=== PATIENT | male | born 1950 | race Two or more races ===

== ENCOUNTER 2016-12-07 11:54 | Emergency (ER) | payer OTHER ==
[2016-12-07 14:28] LABS: BASOPHILS 0.1 % (0-2); EOSINOPHILS 2.5 % (0-7); HEMATOCRIT 43.5 % (42.0-54.0); HEMOGLOBIN 13.7 g/dL (13.5-17.5); IMMATURE GRANULOCYTES 0.1 % (0-5); LYMPHOCYTES 16.2 % (15-50); MCH 24.8 pg (26.0-34.0); MCHC 31.5 g/dL (31.0-37.0); MCV 78.7 fL (80.0-100.0); MEAN PLATELET VOLUME 9.9 fL (7.4-10.4); MONOCYTES 7.6 % (2-11); NEUTROPHILS 73.5 % (40-80); RBC 5.53 10x6/uL (4.20-6.10); RDW 18.8 % (11.5-14.5); WBC 8.4 10x3/uL (4.8-10.8)
[2016-12-07 14:30] LABS: PLATELET COUNT 401 10x3/uL (130-400)
[2016-12-07 14:46] LABS: ALBUMIN 3.3 g/dL (3.4-5.0); ALKALINE PHOSPHATASE 124 U/L (46-116); ALT (SGPT) 44 U/L (10-68); BILIRUBIN - TOTAL 1.53 mg/dL (0.2-1.3); CALC OSMOLALITY 275 mosm/kg (275-300); CALCIUM 9.3 mg/dL (8.5-10.1); CARBON DIOXIDE 29.1 mmol/L (21.0-32.0); CHLORIDE - SERUM 98 mmol/L (98-107); POTASSIUM - SERUM 4.2 mmol/L (3.5-5.1); PROTEIN - SERUM 8.1 g/dL (6.4-8.2); SODIUM 135 mmol/L (136-145); UREA NITROGEN 16 mg/dL (7-18); eGFR NON AFRICAN AMERICAN 79 mL/min (90-120)
[2016-12-07 14:47] LABS: GLUCOSE 197 mg/dL (74-106)
[2016-12-07 17:06] LABS: PRO BNP 785 pg/mL (0-125); TROPONIN-I < 0.017 ng/mL (0.000-0.060)
== END 2016-12-07 17:42 | disposition home or self-care (01) ==
LOC: D.ER 11:54
PROVIDERS: Family Medicine; Physician Assistant Medical
DX: R53.83 Other fatigue (principal); R53.1 Weakness; I10 Essential (primary) hypertension; E11.9 Type 2 diabetes mellitus without complications; I48.91 Unspecified atrial fibrillation; I49.3 Ventricular premature depolarization